=== PATIENT | male | born 1980 | race African-American/Black ===

== ENCOUNTER 2018-09-16 06:41 | Day surgery (SDC) | payer MEDICAID ==
[~2018-09-16] VITALS: Ht 185.4 cm; Wt 115.6 kg
[~2018-09-16 06:41] MED LIST: ECON15CR2 TP; HYDR-4070 PO; LABE100T5 PO; LOSA50TA3 PO; NIFE90TA44 PO
[2018-09-16] MEDS ORDERED: normal saline 1000ml 1,000 ML IV SCH ×2 (07:00→10:00)
[2018-09-16] MEDS ORDERED: SUCR500T PO (07:20)
[2018-09-16] MEDS ORDERED: [UNRECOGNIZED DRUG - OTHER] (07:20)
[2018-09-16] MEDS ORDERED: FURO80TA87 PO (07:20)
[2018-09-16 07:49] VITALS: BP 150/94
[2018-09-16 07:53] LABS: BASOPHILS # (AUTO) 0.1 X10'3 (0-0.2); BASOPHILS % (AUTO) 1.1 % (0-1); EOSINOPHILS # (AUTO) 0.2 X10'3 (0-0.9); EOSINOPHILS % (AUTO) 3.8 % (0-6); HEMATOCRIT 32.3 % (42.0-52.0); LYMPHOCYTES # (AUTO) 2.7 X10'3 (1.1-4.8); LYMPHOCYTES % (AUTO) 41.3 % (21-51); MEAN CORPUSCULAR HEMOGLOBIN 35.7 PG (27.0-31.0); MEAN CORPUSCULAR HGB CONC 33.9 g/dL (33.0-36.5); MEAN CORPUSCULAR VOLUME 105.2 FL (78-98); MEAN PLATELET VOLUME 8.4 FL (7.4-10.4); MONOCYTES # (AUTO) 0.6 X10'3 (0-0.9); MONOCYTES % (AUTO) 8.6 % (2-12); NEUTROPHILS % (AUTO) 45.2 % (42-75); PLATELET COUNT 158 X10'3 (140-440); RED BLOOD COUNT 3.07 X10'6 (4.70-6.10); RED CELL DISTRIBUTION WIDTH 15.1 % (11.5-14.5); WHITE BLOOD COUNT 6.5 X10'3 (4.5-11.0)
[2018-09-16 07:58] LABS: ALBUMIN 3.9 G/DL (3.4-5.0); ANION GAP 11 (8-16); BLOOD UREA NITROGEN 53 MG/DL (7-18); BUN/CREATININE RATIO 5.3 (5.4-32.0); CALCIUM 9.5 MG/DL (8.5-10.1); CHLORIDE 98 MMOL/L (99-107); CREATININE 10.04 MG/DL (0.60-1.10); GLUCOSE 87 MG/DL (70-104); POTASSIUM 3.7 MMOL/L (3.5-5.1); SODIUM 138 MMOL/L (135-145); TOTAL CARBON DIOXIDE 28.6 MMOL/L (24-32); eGFR 7 ML/MIN
[2018-09-16] MEDS ORDERED: midazolam 2 mg/2 ml injection ONE (08:24)
[2018-09-16] MEDS ORDERED: fentaNYL/PF 50MCG/1 ML 2ML syringe ONE (08:24)
[2018-09-16] MEDS ORDERED: LIDOcaine 1%/PF 5ML 10 MG/ML VIAL ONE (08:24)
[2018-09-16] MEDS ORDERED: heparin 1,000 UNITS/NS 500ml 500 ML ONE (08:24)
[2018-09-16] MEDS ORDERED: iohexol 300mg/ml 100ml inj. ONE (08:26)
[2018-09-16 09:38] VITALS: BP 165/102
[2018-09-16 09:53] VITALS: BP 160/102
[2018-09-16] MEDS ORDERED: fentaNYL/PF 50MCG/1 ML 2ML syringe IV PRN (10:00)
[2018-09-16] MEDS ORDERED: LIDOcaine 1%/PF 5ML 10 MG/ML VIAL SQ ONE (10:00)
[2018-09-16] MEDS ORDERED: heparin 1,000 UNITS/NS 500ml 500 ML ICATH ONE (10:00)
[2018-09-16] MEDS ORDERED: midazolam 2 mg/2 ml injection IV PRN (10:00)
[2018-09-16 10:08] VITALS: BP 164/96
[2018-09-16 10:23] VITALS: BP 148/91
[2018-09-16 10:27] VITALS: BP 149/92
== END 2018-09-16 10:47 | disposition home or self-care (01) ==
LOC: SSTAY O 06:41
PROVIDERS: ATTEND Radiology Diagnostic Radiology
DX: T82.858A Stenosis of other vascular prosthetic devices, implants and grafts, initial encounter (principal); Y83.9 Surgical procedure, unspecified as the cause of abnormal reaction of the patient, or of later complication, without mention of misadventure at the time of the procedure; Y92.9 Unspecified place or not applicable; I12.0 Hypertensive chronic kidney disease with stage 5 chronic kidney disease or end stage renal disease; N18.6 End stage renal disease; Z87.891 Personal history of nicotine dependence; Z79.899 Other long term (current) drug therapy; Z88.8 Allergy status to other drugs, medicaments and biological substances; Z98.890 Other specified postprocedural states
CPT/HCPCS: 36415; 36901; 76937; 80048; 85025; 99152; 99153; J1644; J2001; J2250; J3010; J7030; Q9967; C1769; C1894